=== PATIENT | male | born 1965 | race Caucasian/White ===

== ENCOUNTER 2018-05-17 21:50 | Emergency (ER) | payer BC ==
[2018-05-17 22:10] LABS: EOS # 0.3 (0.04-0.40); EOS % 3.5 % (0.0-4.0); HEMATOCRIT 44.2 % (42.0-52.0); HEMOGLOBIN 15.2 g/dL (13.5-18.0); MEAN CELL VOLUME 82 fl (78-100); MEAN CORPUSCULAR HEMOGLOBIN 28 pg (27-31); MEAN CORPUSCULAR HGB CONC 34 g/dL (33-37); MEAN PLATELET VOLUME 8.7 fl (7.4-10.4); MONO # 0.8 (0.20-0.80); NEU # 3.2 (1.40-6.50); PLATELET COUNT 356 K/mm3 (130-400); RED BLOOD COUNT 5.39 M/mm3 (4.20-5.60); RED CELL DISTRIBUTION WIDTH 12.5 % (11.5-14.5); WHITE BLOOD COUNT 8.3 K/mm3 (4.8-10.8)
[2018-05-17 22:25] LABS: ALBUMIN 4.2 g/dL (3.5-5.0); CALCIUM 9.2 mg/dL (8.4-10.2); POTASSIUM 3.7 mmol/L (3.6-5.0); TOTAL BILIRUBIN 0.6 mg/dL (0.2-1.3); TOTAL PROTEIN 7.4 g/dL (6.3-8.2)
[2018-05-17 22:36] LABS: PARTIAL THROMBOPLASTIN TIME 22.5 SECONDS (21.0-32.0); PROTHROMBIN TIME 9.2 SECONDS (9.0-12.0)
[2018-05-18] MEDS ORDERED: PERCOCET 325 MG1 TA2 PO (08:52)
[2018-05-18] MEDS ORDERED: PHENERGAN 25 TA25 MG PO (08:52)
[2018-05-18 09:07] VITALS: BP 148/78
== END 2018-05-18 09:01 | disposition home or self-care (01) ==
LOC: ED 21:50
PROVIDERS: Nurse Practitioner
DX: K80.20 Calculus of gallbladder without cholecystitis without obstruction (principal); R91.8 Other nonspecific abnormal finding of lung field
CPT/HCPCS: J1170; J2270; J2550